=== PATIENT | female | born 1970 | race Caucasian/White ===

== ENCOUNTER 2017-12-20 19:49 | Emergency (ER) | payer OTHER, SELFPAY ==
[2017-12-20 19:50] VITALS: BP 196/111; PULSE 72; RESP 18; TEMP 36.8; O2SAT 99; BMI 29.0
[2017-12-20 20:38] VITALS: BP 176/100
--- NOTE | 2017-12-20 21:56 | ED.DCSUM_ITS ---
- ER Visit Summary Date of Service: 12/20/17 Chief Complaint: Laceration History of Present Illness: The patient is a 47 F with a left index finger laceration. This occurred just prior to arrival. The patient cut her finger on a pocket knife. No other injuries or complaints. No blood thinners. Physical Examination: Hypertensive but otherwise vitals unremarkable. Patient has a 2.5 cm laceration over her left index finger, radial side near the MCP. Neurovascular intact distally. Test Results: None indicated Emergency Department Course and Treatment: Wound was anesthetized, cleaned/ irrigated, explored. No foreign bodies visualized. No tendon involvement. No significant bleeding noted. No bony abnormalities or laxity noted on exam. Wound was closed with 6 simple interrupted sutures. She was given wound care instructions. Follow-up for suture removal. Return sooner for signs of infection. Treatment Plan: As above Disposition: Discharge Impression: 1. Left index finger laceration, 2.5 cm This note was generated with [email or web address] dictation software. It may contain incorrect words, spelling, and punctuation that were not noted in review of the chart prior to signing ED Disposition - Plan for ED Patient: Disposition: Home or Assisted Living Chief Complaint: Laceration Instructions: ED Laceration Hand Additional Instructions: follow up with your doctor
--- NOTE | 2017-12-20 21:56 | ED.DEP ---
ED Disposition - Plan for ED Patient: Chief Complaint: Laceration Instructions: ED Laceration Hand Additional Instructions: follow up with your doctor
[2017-12-20 22:19] VITALS: BP 200/103; PULSE 63; RESP 16; O2SAT 98; O2SAT 99
== END 2017-12-20 22:21 | disposition home or self-care (01) ==
PROVIDERS: Emergency Provider Emergency Medicine
DX: S61.211A Laceration without foreign body of left index finger without damage to nail, initial encounter (principal); W26.0XXA Contact with knife, initial encounter; Y93.9 Activity, unspecified; Y92.9 Unspecified place or not applicable; I10 Essential (primary) hypertension
CPT/HCPCS: 12001; 99282